=== PATIENT | female | born 1965 | race Caucasian/White ===

== ENCOUNTER 2020-07-01 15:46 | Emergency (ER) | payer OTHER ==
[~2020-07-01] VITALS: Ht 172.7 cm; Wt 140.9 kg
[2020-07-01] MEDS ORDERED: METO25XL PO (15:54)
[2020-07-01] MEDS ORDERED: HYDR-1475 PO (15:55)
[2020-07-01] MEDS ORDERED: LISI-662 PO (15:55)
[2020-07-01] MEDS ORDERED: AMLO10TA55 PO (15:56)
[2020-07-01] MEDS ORDERED: LOSA25TA71 PO (15:56)
[2020-07-01] MEDS ORDERED: METO-558 PO (16:33)
[2020-07-01 16:44] LABS: HEMATOCRIT 44.9 % (36-46); HEMOGLOBIN 15.3 g/dL (12.0-16.0); MEAN CORPUSCULAR HEMOGLOBIN 29.5 pg (26.0-34.0); MEAN CORPUSCULAR HGB CONC 34.1 G/dL (31.0-37.0); MEAN CORPUSCULAR VOLUME 87 fL (80-100); PLATELET COUNT (AUTO) 186 K/uL (150-450); RED BLOOD CELL COUNT(AUTO) 5.18 MIL/uL (4.00-5.20)
[2020-07-01] MEDS ORDERED: SODIUM CHLORIDE 0.9% 1,000 ML IV ONE (16:45)
[2020-07-01] MEDS ORDERED: ONDANSETRON HCL 4 MG/2 ML VIAL IVP ONE (16:45)
[2020-07-01 16:58] LABS: ALBUMIN 3.5 g/dL (3.4-5.0); BILIRUBIN,TOTAL 3.2 mg/dL (0.1-1.0); CALCIUM, TOTAL 9.5 mg/dL (8.8-10.5); CREATININE 1.01 mg/dL (0.60-1.30); TOTAL PROTEIN, SERUM 7.8 g/dL (6.4-8.2)
[2020-07-01 17:05] LABS: POTASSIUM 2.8 mmol/L (3.5-5.1)
[2020-07-01 17:07] LABS: BAND NEUTROPHILS % (MANUAL) 8 % (0-5); LYMPHOCYTES % (MANUAL) 7 % (22-44); MONOCYTES % (MANUAL) 6 % (2-9); SEGMENTED NEUTROPHILS % 79 % (40-70)
[2020-07-01 17:08] LABS: PLATELET MORPHOLOGY COMMENT LARGE PLTS PRESENT
[2020-07-01] MEDS ORDERED: IOVERSOL 350 MG/ML 150 ML VIAL ONE (17:19)
[2020-07-01] MEDS ORDERED: SODIUM CHLORIDE 0.9% 100 ML ONE (17:19)
[2020-07-01] MEDS ORDERED: SODIUM CHLORIDE 0.9% IV ONE (17:30)
[2020-07-01] MEDS ORDERED: PIPERACILLIN SODIUM/TAZOBACTAM 4.5 GM in DEXTROSE 5%-WATER 100 ML IV ONE (17:30)
[2020-07-01] MEDS ORDERED: POTASSIUM CHLORIDE 20 MEQ ER TABLET PO PRN (17:30)
[2020-07-01] MEDS: POTASSIUM CHL 10 MEQ/WATER 50 ML IV PRN ×4 (18:11→21:37)
[2020-07-01 22:35] LABS: CALCIUM, TOTAL 8.2 mg/dL (8.8-10.5); POTASSIUM 3.1 mmol/L (3.5-5.1)
[2020-07-01 23:45] VITALS: BP 113/68
== END 2020-07-02 00:12 | disposition home or self-care (01) ==
LOC: EMS 15:48
DX: R65.10 Systemic inflammatory response syndrome (SIRS) of non-infectious origin without acute organ dysfunction (principal); E87.6 Hypokalemia; K52.9 Noninfective gastroenteritis and colitis, unspecified; D72.825 Bandemia; Z88.8 Allergy status to other drugs, medicaments and biological substances; Z79.899 Other long term (current) drug therapy
CPT/HCPCS: 36415; 74177; 80048; 80053; 83605; 83690; 84132; 84484; 85025; 87040; 93005; 96361; 96365; 96366; 96368; 99291; J2405; J2543; J3480; J7030; J7050; J7060; Q9967

== ENCOUNTER → 2021-06-25 | Day surgery (SDC) | payer OTHER ==
[2021-06-23 12:15] LABS: COVID AG,FIA SOURCE NASOPHARYNGEAL
[~2021-06-25] VITALS: Ht 147.3 cm; Wt 145.4 kg
[~2021-06-25] MED LIST: AMLO10TA55 PO; HYDR25TA2 PO; LIDOCAINE/PF 2% 5 ML VIAL IM ONE; LOSA25TA21 PO; METO-558 PO; OMEP20 PO; SODIUM CHLORIDE 0.9% 1,000 ML IV ONE; SODIUM CHLORIDE 0.9% 1,000 ML ONE
== END | disposition home or self-care (01) ==
LOC: SURGERY 11:41
PROVIDERS: ATTEND Internal Medicine Gastroenterology
DX: Z12.11 Encounter for screening for malignant neoplasm of colon (principal); D12.4 Benign neoplasm of descending colon; K64.1 Second degree hemorrhoids; I10 Essential (primary) hypertension; Z88.8 Allergy status to other drugs, medicaments and biological substances; Z90.49 Acquired absence of other specified parts of digestive tract; Z79.899 Other long term (current) drug therapy; Z98.890 Other specified postprocedural states
CPT/HCPCS: 45380; 87426; 88305; C1769; C9803; J3490; J7030